=== PATIENT | female | born 1970 | race African-American/Black ===

== ENCOUNTER → 2023-12-20 11:10 | Outpatient (REF) | payer OTHER, SELFPAY ==
[2023-12-20 19:21] LABS: Rubella Positive
[2023-12-20 20:10] LABS: Hepatitis B Surface Antibody Positive
[2023-12-22 07:21] LABS: Quantiferon Mitogen minus NIL 9.95 IU/mL; Quantiferon NIL 0.05 IU/mL; Quantiferon Plus TB1 minus NIL 0.01 IU/mL (<=0.34); Quantiferon Plus TB2 minus NIL 0.01 IU/mL (<=0.34); Quantiferon TB Gold Plus Negative (Negative)
== END ==
LOC: OHS 11:10
PROVIDERS: ATTENDING PHYSICIAN Nurse Practitioner Family
DX: Z23 Encounter for immunization (principal)
CPT/HCPCS: 36415; 86480; 86706; 86735; 86762; 86765; 86787